=== PATIENT | male | born 1980 | race Caucasian/White ===

== ENCOUNTER 2025-05-31 16:30 | Emergency (ER) | payer BC, SELFPAY ==
[2025-05-31 16:33] VITALS: BP 137/88; PULSE 112; RESP 18; TEMP 36.9; O2SAT 98
[2025-05-31 16:37] VITALS: BP 137/88; PULSE 112; RESP 18; TEMP 36.9; O2SAT 98
--- NOTE | 2025-05-31 17:04 | W.ED.GENAD ---
Discharge Plan Disposition Patient Disposition: Home Condition: Good Discharge Details Clinical Impression: Epididymitis Primary Care Provider: Sharyn,Local ED Provider: Monae Gale Home Meds and New Rx's Prescriptions: New levofloxacin 500 mg tablet 500 mg PO DAILY Qty: 9 0RF Discharge Instructions Instructions: Epididymitis and orchitis, Levofloxacin (Systemic) Additional Instructions: Your ultrasound was significant for left epididymitis. Please call your primary care provider first thing Tuesday morning to schedule follow-up appointment. A referral to urology may be indicated. Take your antibiotics for the full course as prescribed. Stay well hydrated, drinking plenty of fluids throughout the day. You may use Tylenol or ibuprofen as needed for discomfort. For comfort you may use a jockstrap to help support your scrotum. Cold compresses may help with pain and swelling, a bag of peas is a good option. I recommend that you use a condom every time you have anal sex, this may decrease your risk of epididymitis or UTI in the future. Return to emergency care if you develop fever, worsening symptoms, no improvement of symptoms after 3 days of antibiotics, difficulty urinating, or if you are very worried and need to be rechecked again immediately HPI General Date/Time Provider Initiated Documentation: 05/31/25 16:34. HPI Narrative: Johnny is a 44-year-old male who presents to the emergency department today for evaluation of testicular pain and fever. Pain began last night after noticing testicular swelling after his shower, causing discomfort during walking and sitting; this was improved upon waking today. Over the course of today he has had increasing testicular pain radiating up into his lower abdomen/lower back, and upper legs. No numbness/weakness in legs, reports general soreness feeling in legs. Pain is alleviated by laying down, aggravated by sitting and standing. Was recently sick with viral symptoms for the last week symptoms of fatigue, body aches, vomiting, and diarrhea x 1 week resolved yesterday, but testicular pain worsened. Denies nausea/vomiting, dysuria, change in bowel or bladder function, pus drainage from penis, change in appearance of penis, color change to testicles. Left testicle is more swollen than right testicle, both are very tender to palpation. Took an edible for pain relief. Was seen in urgent care, advised to come to emergency dept for further evaluation. Denies significant past medical history, is up-to-date for immunizations. No recent antibiotic use or hospitalization. Denies new sexual partners. Last urinated a few hours ago, no urine sample provided at urgent care. 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 Related Data Home Medications ?Medication ?Instructions ?Recorded ?Confirmed levofloxacin 500 mg tablet 500 mg PO DAILY #9 tabs 05/31/25 Previous Rx's ?Medication ?Instructions ?Recorded levofloxacin 500 mg tablet 500 mg PO DAILY #9 tabs 05/31/25 General Stated Complaint: GenMedical MARTIN: 3 Exam Narrative Exam Narrative: General Appearance: Normal. Vital signs: Within normal limits. Gastrointestinal: Abdomen is soft, nondistended, tender to palpation in the suprapubic area. Genitourinary: Left testicular swelling/erythema/warmth, no lesions or rashes. skin irritation in skin fold, consistent with localized irritation. Penis shows no abnormality, no penile drainage or sores noted.. Skin: Warm and dry, no rash. Psychiatric: Normal. Course Vital Signs Vital signs: Vital Signs Temperature 36.9 C 05/31/25 16:33 Pulse 112 H 05/31/25 16:33 Respiratory Rate 18 05/31/25 16:33 Blood Pressure 137/88 05/31/25 16:33 Pulse Oximetry 98 05/31/25 16:33 Temperature 36.9 C 05/31/25 16:37 Pulse 112 H 05/31/25 16:37 Respiratory Rate 18 05/31/25 16:37 Respiratory Effort Normal 05/31/25 16:44 Respiratory Depth Normal 05/31/25 16:44 Respiratory Pattern Normal 05/31/25 16:44 Blood Pressure 137/88 05/31/25 16:37 Pulse Oximetry 98 05/31/25 16:37 Medical Decision Making Initial Assessment: 44-year-old male with testicular pain and fever, recent nausea, vomiting, and diarrhea. Differential Diagnosis includes but is not limited to: Testicular torsion, epididymitis/orchitis, torsion of appendix testes, inguinal hernia, neoplasm. Mumps orchitis less likely due to vaccinated patient. History and presentation not consistent with Bee's gangrene. ED Course: - Physical examination performed. - Ultrasound performed - Labs ordered I independently interpreted the following tests: CBC notable for mild leukocytosis, white cell count 11.62. CMP unremarkable. UA shows small blood and positive nitrites with greater than 50 white blood cells. Ultrasound notable for epididymitis. Will treat with ceftriaxone IM and levofloxacin to cover E. coli as well as potentially sexually transmitted diseases, as patient has history of insertive anal sex. I did review warnings associated with levofloxacin. Final Assessment: Epididymitis; no red flags indicating need for hospitalization for IV antibiotics. Patient is stable for return home for outpatient management. [place], will follow-up with PCP at home this week. Disposition: - Reviewed discharge instructions with patient, including symptomatic management, use of antibiotics, and red flags indicating need for return to emergency care. He voices agreement with plan of care. Discharge home; return if symptoms worsen or new symptoms develop. Patient consented to the use of [facility] Imaging Data Radiologic Study: Radiologist's impression: Exam(s) US SCROTUM EXAM: US SCROTUM CLINICAL HISTORY: bilat testicle pain, L sided swelling. TECHNIQUE: Scrotal ultrasound performed using grayscale, color-flow and spectral Doppler analysis. COMPARISON: No exams were available for comparison FINDINGS: Right testicle: 4.5 x 2.8 x 2.4 cm Echogenicity: Normal. Contour: Smooth. Mass: None seen. Microlithiasis: None. Hydrocele: There is a 4.5 x 1.2 x 2.5 cm hydrocele. Variocele: None. Hernia: No peristalsing bowel loop identified. Epididymis: There is a 2.1 x 0.8 x 1.7 cm epididymal cyst. The epididymis is otherwise unremarkable. Left testicle: 4.0 x 2.0 x 2.9 cm Echogenicity: Normal. Contour: Smooth. Mass: None seen. Microlithiasis: None. Hydrocele: There is a 2.8 x 1.2 x 3.3 cm hydrocele. Variocele: None. Hernia: No peristalsing bowel loop identified. Epididymis: The tail of the left epididymis is thickened, heterogeneous and hypervascular. The findings are suggestive of epididymitis. DOPPLER: Color: Symmetric and uniform, no hyperemia. IMPRESSION: 1. Normal appearing bilateral testicles. 2. Findings most suggestive of left epididymitis. [facility] All Active Problems (Updated 05/31/25 @ 19:25 by Monae Escalante) Epididymitis (Acute) Social History Smoking/Tobacco Use Status: Current-Occasional Tobacco Type: cigars Smoking risk assessment performed?: Yes Alcohol Intake: current Alcohol Intake frequency: 0-2 drinks per day Substance use type: marijuana Do you feel safe at home: Yes Do you feel safe in your relationship?: Yes PAWSS Have you Been Recently Intoxicated or Drunk Within the Last 30 days?: No Have you Ever Experienced Previous Episodes of Alcohol Withdrawal?: No Have you ever Experienced Withdrawal Seizures?: No Have you ever Experienced Delirium Tremens(DT)s?: No Have you ever undergone Alcohol Rehabilitation Treatment (i.e, inpt ot outpatient treatment programs)?: No Have you ever Experienced Blackouts?: No Have you ever Combined Alcohol with other Downers within the last 90 days?: No Have you ever Combined Alcohol with any other Substance of Abuse during the last 90 days?: No Positive Blood Alcohol level on Presentation? [PCS.BAL]: No Evidence of Increased Autonomic Activity (i.e. HR>120, tremor, sweating, agitation, nausea)?: No Result: 0
[2025-05-31 17:21] LABS: Abs Immature Grans 0.04 10^3/uL (0.0-0.06); HCT 44.2 % (40.0-50.0); HGB 15.3 g/dL (13.5-17.5); Immature Grans % 0.3 %; MCH 32.1 pg (27.0-33.0); MCHC 34.6 % (32.0-36.0); MCV 93 fL (80-95); MPV 10.3 fL (8.0-11.0); Platelet Count 255 10^3/uL (130-400); RBC 4.76 10^6/uL (4.36-5.78); RDW 11.3 % (11.8-14.1); RDW-SD 38.4 fL; WBC 11.62 10^3/uL (4.4-10.8)
[2025-05-31 17:23] LABS: Glucose Negative (Negative)
[2025-05-31] MEDS: Ketorolac 15 MG/ML VIAL IM (17:23)
[2025-05-31] MEDS: Acetaminophen 500 MG TAB 1000 MG PO (17:23)
[2025-05-31 17:30] LABS: C & S Indicated? Yes; WBC >50 HPF (0-5)
--- NOTE | 2025-05-31 17:30 | DI.US_ITS ---
Exam(s) US SCROTUM EXAM: US SCROTUM CLINICAL HISTORY: bilat testicle pain, L sided swelling. TECHNIQUE: Scrotal ultrasound performed using grayscale, color-flow and spectral Doppler analysis. COMPARISON: No exams were available for comparison FINDINGS: Right testicle: 4.5 x 2.8 x 2.4 cm Echogenicity: Normal. Contour: Smooth. Mass: None seen. Microlithiasis: None. Hydrocele: There is a 4.5 x 1.2 x 2.5 cm hydrocele. Variocele: None. Hernia: No peristalsing bowel loop identified. Epididymis: There is a 2.1 x 0.8 x 1.7 cm epididymal cyst. The epididymis is otherwise unremarkable. Left testicle: 4.0 x 2.0 x 2.9 cm Echogenicity: Normal. Contour: Smooth. Mass: None seen. Microlithiasis: None. Hydrocele: There is a 2.8 x 1.2 x 3.3 cm hydrocele. Variocele: None. Hernia: No peristalsing bowel loop identified. Epididymis: The tail of the left epididymis is thickened, heterogeneous and hypervascular. The findings are suggestive of epididymitis. DOPPLER: Color: Symmetric and uniform, no hyperemia. IMPRESSION: 1. Normal appearing bilateral testicles. 2. Findings most suggestive of left epididymitis. DATA REPOSITORY:
[2025-05-31 17:36] LABS: ALT 36 U/L (16-63); AST 15 U/L (15-37); Albumin 4.2 g/dL (3.4-5.0); Alkaline Phosphatase 56 U/L (46-116); Anion Gap 9.0 mmol/L (3-11); BUN 11 mg/dL (7-18); Bilirubin, Total 0.4 mg/dL (0.2-1.0); CO2 29.0 mmol/L (21.0-32.0); Calcium 9.5 mg/dL (8.5-10.1); Chloride 101 mmol/L (98-107); Estimated GFR 77.43 (mL/min/1.73m2); Glucose 113 mg/dL (74-106); Potassium 4.1 mmol/L (3.5-5.1); Sodium 139 mmol/L (136-145); Total Protein 8.6 g/dL (6.4-8.2)
[2025-05-31 19:37] VITALS: BP 112/82; PULSE 83; O2SAT 96
[2025-05-31] MEDS: levoFLOXacin 500 MG TAB PO (19:42)
[2025-05-31] MEDS: cefTRIAXone 1 GM VIAL 0.5 GM IM (19:42)
[2025-06-03 12:04] LABS: Chlamydia Result Negative (Negative); GC Result Negative (Negative)
== END 2025-05-31 19:44 | disposition home or self-care (01) ==
PROVIDERS: Emergency Provider Nurse Practitioner Family
DX: N45.1 Epididymitis (principal)
CPT/HCPCS: 99284 ×2; 96372; 80053; 87077; 87491; 87591; 76870; 81003; 81015; 85025; 87086; 87186; J0696; J1885